=== PATIENT | male | born 1955 | race American Indian/Alaskan Native ===

== ENCOUNTER 2016-05-18 06:57 | Emergency (ER) | payer MEDICAID ==
[~2016-05-18 06:57] MED LIST: ADRENALIN ONE; D50W (25GM) IV ONE
--- NOTE | 2016-05-18 12:58 | Emergency Department Report ---
ED CPR HPI - General Chief Complaint: Cardiac Arrest/CPR Stated Complaint: CARDIAC ARREST Source: family, EMS Mode of arrival: Stretcher Limitations: Other - History of Present Illness Initial Comments: Patient seen immediately upon arrival to the emergency department. Patient brought in by EMS after being found by family member unresponsive 10 minutes after seeing him responsive. Patient with history of stage IV metastatic lung cancer who is no longer getting chemotherapy. Family states they were arranging for him to go into hospice. MD Complaint: found unresponsive Onset/Timin (after last known well time) -: minute(s) Time: 06:05 Place: home Bystander CPR Performed: Yes (law enforcement started CPR) AED Applied by Bystander/Resistor Winder: Yes Shock Advised: No Initial Findings in the Field: unresponsive, no respirations, no pulse, other rhythm (asystole) ROSC in the Field: No Associated Injuries: No Treatments Prior to Arrival: intubation, epinephrine mgs # (2), glucose (Accu- Chek was 45), other - Related Data Home Medications Medication Instructions Recorded Confirmed Last Taken No Known Home Medications [No 05/07/14 05/07/14 Unknown Reported Home Medications] Allergies Allergy/AdvReac Type Severity Reaction Status Date / Time No Known Allergies Allergy Unverified 05/07/14 01:47 ED Review of Systems ROS: Stated complaint: CARDIAC ARREST Other details as noted in HPI Comment: Unobtainable due to pts medical conditions (patient intubated in full arrest) ED Past Medical Hx - Past Medical History Previous Medical History?: Yes Hx of Cancer: Yes (Lung) - Social History Smoking Status: Unknown if ever smoked - Medications Home Medications: Home Medications Medication Instructions Recorded Confirmed Last Taken Type No Known Home Medications [No 05/07/14 05/07/14 Unknown History Reported Home Medications] ED Physical Exam - General Limitations: Other General appearance: other (comatose) - Head Head exam: Present: atraumatic - Eye Eye exam: Present: other (2. 6 and dilated) - ENT ENT exam: Present: other - Neck Neck exam: Present: normal inspection (oral intubation) - Respiratory Respiratory exam: Present: normal lung sounds bilaterally (with bagging) - Cardiovascular Cardiovascular Exam: Present: other (no heart sounds) - GI/Abdominal GI/Abdominal exam: Present: other (normal inspection) - Extremities Exam Extremities exam: Present: other (extremities are thin and cool) - Neurological Exam Neurological exam: Present: other (comatose) - Skin Skin exam: Present: dry, other (cool) ED Course - Reevaluation(s) Reevaluation #1: 05/18/16 12:58 Patient given another amp of D50 and another amp of epinephrine with no response. As patient had been without a pulse for approximately an hour by this time it was felt that further resuscitation was futile and patient was pronounced. Critical care attestation.: If time is entered above; I have spent that time in minutes in the direct care of this critically ill patient, excluding procedure time. ED Disposition Clinical Impression: D.O.A. ( on arrival) Disposition: Is pt being admited?: No Does the pt Need Aspirin: No Condition: Stable Referrals: PRIMARY CARE, [Primary Care Provider] - 3-5 Days Time of Disposition: 07:15
== END 2016-05-18 11:00 ==
LOC: ED 06:57 → EDBD 06:57 → ED 11:00
DX: I46.9 Cardiac arrest, cause unspecified (principal); Z85.118 Personal history of other malignant neoplasm of bronchus and lung
CPT/HCPCS: 99285; J0171